=== PATIENT | male | born 1985 | race Caucasian/White ===

== ENCOUNTER → 2022-12-04 | Outpatient (CLI) | payer SELFPAY, MEDICAID ==
--- NOTE | 2022-12-04 15:18 | MRI_ITS ---
EXAM: MR CERVICAL SPINE WITHOUT INTRAVENOUS CONTRAST CLINICAL INDICATION: neck pain into bilateral shoulders /arms no known injury TECHNIQUE: Multiplanar and multisequence MR images of the cervical spine without intravenous contrast were performed. COMPARISON: No relevant prior studies available. FINDINGS: VERTEBRAE: No significant abnormality. Normal vertebral bodies and posterior elements. Normal alignment. Normal craniocervical junction and cervicothoracic junction. No spondylolisthesis. There is preservation of the normal cervical lordosis. SPINAL CORD: Unremarkable in signal and morphology. SOFT TISSUES: No significant abnormality. No prevertebral soft tissue swelling. LYMPH NODES: No significant abnormality. There is no cervical adenopathy. THYROID: T2 hyperintense right-sided thyroid nodules, the largest visualized measuring up to approximately 9 mm. DISCS/SPINAL CANAL/NEURAL FORAMINA: C2-C3: Mild bilateral facet arthrosis. Mild left neural foraminal narrowing. No disc herniation or spinal canal stenosis. C3-C4: Mild left greater than right facet arthrosis. No disc herniation, spinal canal stenosis, or neural foraminal narrowing. C4-C5: Mild bilateral facet and uncovertebral joint arthrosis and very mild disc bulge. Minimal spinal canal stenosis. No significant neural foraminal narrowing. C5-C6: Mild bilateral facet arthrosis. No disc herniation, spinal canal stenosis, or neural foraminal narrowing. C6-C7: No significant abnormality. No disc herniation, spinal canal stenosis, or neural foraminal narrowing. C7-T1: No significant abnormality. No disc herniation, spinal canal stenosis, or neural foraminal narrowing. MRI/Spine Cervical (Routine) IMPRESSION: 1. Mild degenerative changes. No critical spinal canal stenosis or critical neural foraminal narrowing. No spinal cord signal abnormality. 2. T2 hyperintense right-sided thyroid nodules, the largest visualized measuring up to approximately 9 mm. ACR White Paper guidelines (Davalos JK, et al. JACR 2015;12(2):143-50) suggest no follow-up is necessary. Electronically Signed: Andres Estevez DO at 20:42 EDT ,
== END | disposition home or self-care (01) ==
PROVIDERS: PCP Nurse Practitioner; Visit Provider Orthopaedic Surgery
DX: M50.20 Other cervical disc displacement, unspecified cervical region (principal)
CPT/HCPCS: 72141